=== PATIENT | male | born 1985 | race Caucasian/White ===

== ENCOUNTER 2017-09-21 10:23 | Emergency (ER) | payer SELFPAY ==
[~2017-09-21] VITALS: Ht 185.4 cm; Wt 121.0 kg
[~2017-09-21 10:23] MED LIST: CYCL-36 PO; HYDR-3533 PO; IBUP800T23 PO; INDO25CA PO; PRED20 PO; Z.0.NO CURRENT MEDS
[2017-09-21 10:27] VITALS: BP 141/93; PULSE 92; RESP 16; TEMP 97.9; O2SAT 97
[2017-09-21] MEDS ORDERED: DEXAMETHASONE SOD PHOS 4 MG/ML VIAL IM ONE (11:00)
[2017-09-21] MEDS ORDERED: KETOROLAC TROMETHAMINE 60 MG/2 ML (IM) VIAL IM ONE (11:00)
[2017-09-21] MEDS ORDERED: PRED20 PO (11:01)
--- NOTE | 2017-09-21 11:02 | PD ---
HPI Chief Complaint: Musculoskeletal Complaint Time Seen by Provider: 10:46 Travel History International Travel<30 days: No Contact w/Intl Traveler<30days: No Traveled to known affect area: No History of Present Illness HPI 32-year-old male presents to the emergency department for evaluation of right knee pain that started yesterday evening without traumatic injury. Patient denies any previous surgeries to the knee. No open areas. He denies any fevers or chills. He recently went to [facility] for back pain and was described pain medication and muscle relaxants. He states he does have a history of gout, but this is not similar. He denies any erythema. He states is slightly swollen. He reports pain with flexion, but can flex the knee. Patient has no other medical problems. Current pain is 5/10 to the right anterior knee, aching and throbbing, without radiation. Moderate severity. PFSH Past Medical History ADHD: Yes (DURING CHILDHOOD/TEENS) Bipolar Disorder: Yes (DURING TEENS) Diminished Hearing: No Gout: Yes Kidney Stones: Yes Integumentary: Yes (Psoriasis) Tetanus Vaccination: < 5 Years Influenza Vaccination: No Past Surgical History Surgical History: No Previous Surgery Social History Alcohol Use: Yes (Once a week ) Tobacco Use: Yes (1 PPD) Substance Use: No Allergies-Medications (Allergen,Severity, Reaction): Coded Allergies: No Known Allergies (Verified , 01/28/15) Reported Meds & Prescriptions Reported Meds & Active Scripts Active Lortab 5 mg/325 mg (Hydrocodone/Acetaminophen 5 mg/325 mg) 1 Tab 1 Tab PO Q6H PRN Deltasone (Prednisone) 20 Mg Tab 20 Mg PO BID Indomethacin 25 Mg Cap 50 Mg PO TID PRN Flexeril (Cyclobenzaprine HCl) 10 Mg Tab 10 Mg PO TIDPRN Ibuprofen 800 Mg Tab 800 Mg PO Q6-8HPRN Reported No Current Meds (Miscellaneous Medication) Misc Review of Systems Except as stated in HPI: all other systems reviewed are Neg Physical Exam Narrative GENERAL: Well-nourished, well-developed male patient, ambulatory. Afebrile SKIN: Focused skin assessment warm/dry. Patient has psoriasis rash to bilateral anterior knees HEAD: Normocephalic. Atraumatic. EYES: No scleral icterus. No injection or drainage. NECK: Supple, trachea midline. No JVD or lymphadenopathy. CARDIOVASCULAR: Regular rate and rhythm without murmurs, gallops, or rubs. Right pedal pulses 2+ RESPIRATORY: Breath sounds equal bilaterally. No accessory muscle use. Lung sounds are clear to auscultation GASTROINTESTINAL: Abdomen soft, non-tender, nondistended. MUSCULOSKELETAL: No cyanosis, or edema. No erythema or warmth over the er right knee. He has full flexion-extension. He has full sensation to the distal right lower extremity. No deformity. BACK: Nontender without obvious deformity. No CVA tenderness. Data Data Last Documented VS Vital Signs Date Time Temp Pulse Resp B/P (MAP) Pulse Ox O2 Delivery O2 Flow Rate FiO2 09/21/17 10:27 97.9 92 16 141/93 (109) 97 Room Air Orders Orders Dexamethasone Inj (Decadron Inj) (09/21/17 11:00) Ketorolac Inj (Toradol Inj) (09/21/17 11:00) MDM Medical Decision Making Medical Screen Exam Complete: Yes Emergency Medical Condition: Yes Medical Record Reviewed: Yes Differential Diagnosis Arthritis versus sprain versus gouty arthritis versus septic joint Narrative Course 32-year-old male presents to the emergency department for evaluation of right knee pain that started yesterday evening without injury. No evidence of septic joint on exam. Patient appears well. I discussed x-ray with patient, but there was no injury he agrees this is not needed at this time. Patient is given Toradol 60 mg IM, dexamethasone 60 mg IM for possible arthritis/gout. No evidence of bony injury on exam. Patient will be discharged with a prescription for prednisone. He is to continue his other pain medication as needed and follow-up with the [facility]. The patient was discharged in stable condition with instructions, including return instructions and follow up instructions. Diagnosis Primary Impression: Right anterior knee pain Referrals: [facility] call for appointment Patient Instructions: General Instructions, Knee Pain (ED) Additional Instructions: Take prednisone as directed. Start this tomorrow. Ice for 20 minutes 4-5 times daily. Follow-up with the [facility] Return to the emergency department for any acute worsening of symptoms Med/Other Pt SpecificInfo: Prescription(s) given Scripts Prednisone (Prednisone) 20 Mg Tab 40 MG PO DAILY, #10 TAB 0 Refills Take 40 mg (2 tablets) daily for 5 days Prov: Karoline Luke 09/21/17 Disposition: 01 DISCHARGE HOME Condition: Stable Karoline Luke Sep 21, 2017 11:02
== END 2017-09-21 12:06 | disposition home or self-care (01) ==
LOC: PHEFT 10:23
DX: M25.561 Pain in right knee (principal); F90.9 Attention-deficit hyperactivity disorder, unspecified type; F31.9 Bipolar disorder, unspecified; M10.9 Gout, unspecified; F17.200 Nicotine dependence, unspecified, uncomplicated; Z87.442 Personal history of urinary calculi
CPT/HCPCS: 96372; 99283; J1100; J1885

== ENCOUNTER 2017-09-25 10:31 | Emergency (ER) | payer SELFPAY ==
[~2017-09-25] VITALS: Ht 185.4 cm; Wt 120.0 kg
[2017-09-25 10:33] VITALS: BP 178/107; PULSE 104; RESP 18; TEMP 97.4; O2SAT 99
[2017-09-25] MEDS ORDERED: PRIL20TA2 PO (10:53)
--- NOTE | 2017-09-25 12:05 | RADRPT ---
EXAM DATE/TIME: 09/25/2017 11:18 [place] COMPARISON: No previous studies available for comparison. INDICATIONS : No known injury. Pain and swelling in right knee for three days. MEDICAL HISTORY : None. SURGICAL HISTORY : None. ENCOUNTER: Initial ACUITY: 3 days PAIN SCORE: 10/10 LOCATION: Right Knee FINDINGS: There is a large suprapatellar knee joint effusion. Mild degenerative changes are noted involving the patellofemoral and femorotibial joints. There is no acute fracture or dislocation. CONCLUSION: 1. Large suprapatellar knee joint effusion. 2. No acute fracture or dislocation. 3. Mild degenerative changes involving the patellofemoral and femorotibial joint. Corey Arroyo MD on September 25, 2017 at 12:01 Board Certified Radiologist. This report was verified electronically.
[2017-09-25] MEDS ORDERED: IBUP1TAB7 PO (12:32)
--- NOTE | 2017-09-25 12:39 | PD ---
HPI Chief Complaint: Musculoskeletal Complaint Time Seen by Provider: 11:05 Travel History International Travel<30 days: No Contact w/Intl Traveler<30days: No Traveled to known affect area: No History of Present Illness HPI 32-year-old male presents emergency department for evaluation of right knee pain that is worsened over the last 24 hours. States that the knee has become increasingly swollen and "stiff". Says the pain is moderate in severity. Says he has been icing and elevating his knee since 5:00 this morning and has helped reduce some the swelling but states it is still very painful and swollen to him. Says he had limited range of motion secondary to pain. Patient denies fevers or chills. Denies any inciting events. Denies calf or foot pain. 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 Says he was in the emergency department and received prednisone however, this has not helped significantly. Says he does have a history of gout but does not believe this is gout. PFSH Past Medical History ADHD: Yes (DURING CHILDHOOD/TEENS) Bipolar Disorder: Yes (DURING TEENS) Diminished Hearing: No Gout: Yes Kidney Stones: Yes Integumentary: Yes (Psoriasis) Social History Alcohol Use: Yes (ocass) Tobacco Use: Yes (/ PPD) Substance Use: No Allergies-Medications (Allergen,Severity, Reaction): Coded Allergies: No Known Allergies (Verified Adverse Reaction, Unknown, 09/25/17) Reported Meds & Prescriptions Reported Meds & Active Scripts Active Ibuprofen 800 Mg Tab 800 Mg PO Q8H PRN 7 Days Reported Prilosec (Omeprazole Magnesium) 20 Mg Tab 20 Mg PO DAILY Review of Systems Except as stated in HPI: all other systems reviewed are Neg Physical Exam Narrative GENERAL: WD, WN in mild distress SKIN: Focused skin assessment warm/dry. Scattered psoriasis over extremities without significant erythema or edema. HEAD: Atraumatic. Normocephalic. EYES: Pupils equal and round. No scleral icterus. No injection or drainage. ENT: No nasal bleeding or discharge. Mucous membranes pink and moist. NECK: Trachea midline. No JVD. GASTROINTESTINAL: Abdomen soft, non-tender, nondistended. MUSCULOSKELETAL: No obvious deformities. No clubbing. No cyanosis. No edema. Hardeep's sign negative bilaterally. no TTP to ankle. edema to posterior knee without significant edema Right knee-tender to palpation in the suprapatellar region with edema. Psoriatic plaques over the anterior aspect of patella without significant edema , erythema. No lymph angiopathic spread. ROM limited secondary to pain-approx 30 degrees from 90 degree flexion NEUROLOGICAL: Awake and alert. No obvious cranial nerve deficits. Motor grossly within normal limits. Normal speech. PSYCHIATRIC: Appropriate mood and affect; insight and judgment normal. Data Data Last Documented VS Vital Signs Date Time Temp Pulse Resp B/P (MAP) Pulse Ox O2 Delivery O2 Flow Rate FiO2 09/25/17 10:33 97.4 104 18 178/107 (130) 99 Orders Orders Knee, Complete (4vws) (09/25/17 ) Support Splint (09/25/17 12:12) Mandatory Outpatient Referral (09/25/17 12:30) Crutches (09/25/17 12:30) Ed Discharge Order (09/25/17 12:39) MDM Medical Decision Making Medical Screen Exam Complete: Yes Emergency Medical Condition: Yes Differential Diagnosis Joint effusion, knee fracture, knee sprain Narrative Course 32-year-old male presents emergency department for evaluation of right knee pain that is worsened over the last 24 hours. Vital signs are stable however, there is mild tachycardia and blood pressure slightly elevated. His exam findings demonstrate a 32-year-old male, anxious, slow to ambulate secondary to pain. The right knee appears more edematous than the left. There is tenderness palpation of the suprapatellar region, consistent with a joint effusion. There are psoriatic plaques over the patella there is no evidence of infectious process. The skin surrounding the psoriasis appears normal. There is no obvious break in the skin. Homans sign negative bilaterally. There is no tenderness to the calf or ankle. No tender palpation to the thigh. Patient says that he did go to an orthopedic physician office however, states that he was unable to afford the co-pay as he does not have insurance. Mandatory referral placed for his right knee. I suspect a ligamental or meniscal involvement causing his pain. I explained to the patient that he should follow-up with orthopedic physician for further evaluation. He should also follow-up with her primary care physician for further treatment and evaluation. Advised that if his symptoms persist or worsen return to the emergency department. Diagnosis Primary Impression: Joint effusion Referrals: Mark Louis MD Orthopedist Departure Forms: School Release, Return to School Date: Sep 28, 2017 Tests/Procedures, Work Release Enter return to work date: Oct 01, 2017 Additional Instructions: Take ibuprofen with food to avoid complications or upset stomach. Take all medications as prescribed. If your symptoms persist or worsen return to the emergency department. You have been ordered a mandatory referral. He should expect a phone call regarding this referral. Scripts Ibuprofen (Ibuprofen) 800 Mg Tab 800 MG PO Q8H Y for Pain/Inflammation for 7 Days, #21 TAB 0 Refills Prov: Axel Brantley MD 09/25/17 Disposition: 01 DISCHARGE HOME Condition: Stable Jessica Lanza Sep 25, 2017 12:39
== END 2017-09-25 13:07 | disposition home or self-care (01) ==
LOC: PHEFT 10:31
DX: M25.461 Effusion, right knee (principal); R00.0 Tachycardia, unspecified; F17.210 Nicotine dependence, cigarettes, uncomplicated; Z87.442 Personal history of urinary calculi
CPT/HCPCS: 73564; 99283; E0113

== ENCOUNTER 2017-12-03 17:30 | Emergency (ER) | payer SELFPAY ==
[~2017-12-03] VITALS: Ht 185.4 cm; Wt 122.6 kg
[~2017-12-03 17:30] MED LIST changes: -CYCL-36 PO; -HYDR-3533 PO; +IBUP1TAB7 PO; -IBUP800T23 PO; -INDO25CA PO; -PRED20 PO; +PRIL20TA2 PO; -Z.0.NO CURRENT MEDS
[2017-12-03 17:41] VITALS: BP 135/68; PULSE 96; RESP 16; TEMP 98.6; O2SAT 96
[2017-12-03] MEDS ORDERED: ALLO100T PO (17:59)
[2017-12-03] MEDS ORDERED: LIDOCAINE 1%/EPINEPHrine 1:100,000 SOLN 20 ML VIAL INFIL ONE (18:30)
[2017-12-03] MEDS ORDERED: DOXY100C PO (19:25)
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
[2017-12-03] MEDS ORDERED: TETANUS/DIPHTHERIA TOXOID ADULT 0.5 ML VIAL IM ONE (19:30)
== END 2017-12-03 19:52 | disposition home or self-care (01) ==
LOC: PHEFT 17:30
DX: S91.311A Laceration without foreign body, right foot, initial encounter (principal); I10 Essential (primary) hypertension; W26.8XXA Contact with other sharp object(s), not elsewhere classified, initial encounter; Z23 Encounter for immunization
CPT/HCPCS: 12002; 90471; 90714